=== PATIENT | male | born 1995 | race African-American/Black ===

== ENCOUNTER 2016-12-21 12:33 | Emergency (ER) | payer SELFPAY ==
[~2016-12-21] VITALS: Ht 188 cm; Wt 82.0 kg
[2016-12-21] MEDS ORDERED: LIDOCAINE 2%, 20ML SQ ONE (13:00)
[2016-12-21] MEDS ORDERED: LIDOCAINE 1%, 20ML ONE (13:09)
[2016-12-21] MEDS ORDERED: BACITRACIN ZINC OINT 500U/GM, 0.9 GM ONE (14:18)
[2016-12-21 14:33] VITALS: BP 117/71
== END 2016-12-21 14:35 | disposition home or self-care (01) ==
LOC: ED 14:21
DX: S71.112A Laceration without foreign body, left thigh, initial encounter (principal); W26.2XXA Contact with edge of stiff paper, initial encounter; Y93.89 Activity, other specified; Y92.89 Other specified places as the place of occurrence of the external cause; Y99.8 Other external cause status
CPT/HCPCS: 12004